=== PATIENT | male | born 1955 | race Caucasian/White ===

== ENCOUNTER 2024-06-13 19:58 | Emergency (ER) | payer MEDICARE, OTHER, SELFPAY ==
[2024-06-13] VITALS (18 sets, daily range): BP systolic 80–135; BP diastolic 54–78; PULSE 45–72; RESP 14–24; TEMP 36–36.7; O2SAT 90–98; BMI 28.5
--- NOTE | 2024-06-13 20:46 | DI.RAD.S_ITS ---
PROCEDURE: XR CHEST 1V INDICATIONS: chest pain TECHNIQUE: One view of the chest was acquired. COMPARISON: None. FINDINGS: Surgical changes and devices: Median sternotomy wires. CABG surgical clips. Left atrial appendage occlusion device. Lungs and pleura: Lungs are clear. No pleural effusions or pneumothorax. Mediastinum: Aortic arch calcifications. Mediastinal contours appear normal. Heart size is normal. Bones and chest wall: Prior right distal clavicular resection. No suspicious bony lesions. Overlying soft tissues appear unremarkable. IMPRESSION: No acute cardiothoracic process. Dictated by: Darrius Jasso M.D. on 06/13/2024 at 21:18 Approved by: Darrius Jasso M.D. on 06/13/2024 at 21:18
--- NOTE | 2024-06-13 20:46 | EKG_ITS ---
[address] [address] Test Date: 2024-06-13 Pat Name: Vince Caraballo Department: [facility] Room: Gender: Male [employer] Superintendent: MAREK DAY : 1955 Requested By: Order Number: [id number] Reading MD: Cuate Lester MD Measurements Intervals [place] Rate: 56 P: 38 IA: 192 QRS: -7 QRSD: 92 T: 8 QT: 424 QTc: 409 Interpretive Statements Sinus bradycardia Electronically Signed On 06-14-2024 12:21:41 PST by Cuate Lester MD
[2024-06-13 20:54] LABS: INR 0.9 (0.9-1.3)
[2024-06-13 20:56] LABS: Add Manual Diff / Slide Review NO; Basophils Absolute Auto 100 /uL (0-100); Basophils Percent Auto 0.8 % (0-2); Eosinophils Absolute Auto 100 /uL (0-450); Eosinophils Percent Auto 1.5 % (2-4); Hematocrit 48.1 % (41-53); Hemoglobin 16.4 g/dL (13.5-17.5); Lymphocytes Absolute Auto 3900 /uL (1100-4500); Lymphocytes Percent Auto 41.6 % (25-40); Mean Corpuscular HGB Conc 34.1 % (30-36); Mean Corpuscular Hemoglobin 30.3 PG (26-34); Monocytes Absolute Auto 400 /uL (0-900); Monocytes Percent Auto 4.6 % (3-14); Neutrophils Absolute Auto 4800 /uL (1500-7000); Neutrophils Percent Auto 51.5 % (50-75); Platelet Count 221 X10^3/uL (150-400); Red Cell Distribution Width 13.7 % (11.6-14.8); White Blood Cell Count 9.3 X10^3/uL (4.5-11.0)
[2024-06-13 20:59] LABS: Alanine Aminotransferase 37 IU/L (<50); Albumin 4.5 g/dL (3.5-5.0); Albumin Globulin Ratio 1.7 (1.0-2.8); Alkaline Phosphatase 88 U/L (38-126); Aspartate Aminotransferase 38 IU/L (17-59); BUN Creatinine Ratio 16.5 (6-22); Bilirubin Total 0.5 mg/dL (0.2-1.3); Blood Urea Nitrogen 19 mg/dL (9-20); Calcium 8.9 mg/dL (8.4-10.2); Carbon Dioxide 21 mmol/L (22-32); Chloride 108 mmol/L (98-107); Creatine Kinase 114 U/L (55-170); Estimated Glomerular Filt Rate > 60 mL/min (>60); Globulin 2.6 g/dL (1.7-4.1); Glucose 144 mg/dL (80-110); HEMOLYSIS 29 (0-50); Lipase 78 U/L (23-300); Magnesium 2.4 mg/dL (1.6-2.3); PTT Partial Thromboplastin Tim 21 SECONDS (25.1-36.5); Potassium 3.9 mmol/L (3.4-5.1); Sodium 141 mmol/L (137-145); Total Protein 7.1 g/dL (6.3-8.2)
[2024-06-13 21:11] LABS: NT-proBNP (BNP-Adult 18+) 87 pg/mL (<125); Troponin I < 0.012 ng/mL (0.01-0.034)
--- NOTE | 2024-06-13 21:16 | DI.CT.S_ITS ---
PROCEDURE: CT ANGIO CHEST ABDOMEN PELVIS INDICATIONS: dizzy, low BP, aortagram TECHNIQUE: Precontrast 5 mm thick sections acquired from the lung apices to the iliac crests. After the administration of intravenous contrast, 2.5 mm thick sections again acquired from the lung apices to the iliac crests. Maximum intensity projection (MIP) oblique sagittal and coronal reformats were then acquired. For radiation dose reduction, the following was used: automated exposure control. COMPARISON: None. FINDINGS: Image quality: Diagnostic. Thyroid: Within normal limits. Cardiac: Heart size within normal limits. No pericardial effusion. Aortic valve graft. Moderate coronary artery calcifications. Left atrial appendage occlusion device. Aorta: No aortic intramural hematoma, aneurysm, or dissection. The visualized arterial vasculature is patent. Mild aortoiliac atherosclerosis. Pulmonary Artery: Main pulmonary artery diameter within normal limits. Lungs: No focal lung consolidation. Pleura: No pneumothorax or pleural effusion. Airways: The trachea and mainstem bronchi are patent. Lymph Nodes: No mediastinal, hilar, or axillary lymphadenopathy. Esophagus: Small hiatal hernia. Peritoneum: No pneumoperitoneum or ascites. Bones: No acute osseous abnormality. Liver: Normal in size and contour. Gallbladder: Cholelithiasis. Biliary tree: No intrahepatic or extrahepatic biliary ductal dilatation. Pancreas: Within normal limits. Spleen: Normal in size and contour. Kidneys: No hydronephrosis or obstructive urolithiasis. Adrenals: No adrenal nodularity. Bladder: Normal in size and wall thickness. : No acute abnormality. Stomach: Normal in size and contour. Bowel: Normal in diameter without any bowel obstruction. Nonvisualization of the appendix without secondary signs of acute appendicitis. 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 Lymph Nodes: No retroperitoneal, mesenteric, or inguinal lymphadenopathy. Soft Tissues: No acute abnormality. IMPRESSION: 1. No CT evidence of acute aortic syndrome. 2. Cholelithiasis. 3. No other acute CT abnormality of the chest/abdomen/pelvis. Dictated by: Darrius Jasso M.D. on 06/13/2024 at 22:59 Approved by: Darrius Jasso M.D. on 06/13/2024 at 23:06
--- NOTE | 2024-06-13 21:18 | DI.CT.S_ITS ---
PROCEDURE: CT HEAD/BRAIN WO CON INDICATIONS: syncope TECHNIQUE: Noncontrast 4.5 mm thick angled axial sections acquired from the foramen magnum to the vertex, with coronal and sagittal reformats. For radiation dose reduction, the following was used: automated exposure control, adjustment of mA and/or kV according to patient size. COMPARISON: None. FINDINGS: Image quality: Diagnostic. CSF spaces: Basal cisterns are patent. No extra-axial fluid collections. Ventricles are normal in size and shape. Brain: No midline shift. No intracranial masses or hemorrhage. [place]red[place]-white matter interface is normal. Intracranial atherosclerosis. Skull and face: Calvarium and visualized facial bones are intact, without suspicious lesions. Sinuses: Visualized sinuses and mastoids are clear. IMPRESSION: No acute intracranial abnormality. Dictated by: Darrius Jasso M.D. on 06/13/2024 at 22:58 Approved by: Darrius Jasso M.D. on 06/13/2024 at 22:59
[2024-06-13] MEDS: ONDANSETRON 4 MG/2 ML INJ IV (21:35)
[2024-06-13] MEDS: SODIUM CHLORIDE 0.9% 1,000 ML 1000 ML IV (21:36)
[2024-06-13 21:47] LABS: Ethanol (ETOH) 144 mg/dL
[2024-06-13] MEDS: ASPIRIN 81 MG CHEW TAB 324 MG PO (22:24)
[2024-06-13] MEDS: ASPIRIN 81 MG CHEW TAB 162 MG PO (22:33)
[2024-06-13 23:31] LABS: Troponin I < 0.012 ng/mL (0.01-0.034)
[2024-06-13 23:35] LABS: Appearance Urine UA CLEAR; Bilirubin Urine UA NEGATIVE (NEGATIVE); Color Urine UA YELLOW; Glucose Urine UA NEGATIVE (Negative); Ketones Urine UA NEGATIVE (NEGATIVE); Leukocyte Esterase Urine UA NEGATIVE (NEGATIVE); Nitrite Urine UA NEGATIVE (Negative); Occult Blood Urine UA NEGATIVE (Negative); Protein Urine UA NEGATIVE (Negative); Urobilinogen Urine UA 0.2 E.U./dL (0.2)
[2024-06-13 23:40] LABS: Ur Creatinine Normal (Normal); Ur Specific Gravity Normal (Normal); Urine Amphetamines Negative (Negative); Urine Barbiturates Negative (Negative); Urine Benzodiazepines Negative (Negative); Urine Cocaine Negative (Negative); Urine MDMA Negative (Negative); Urine Methadone Negative (Negative); Urine Methamphetamines Negative (Negative); Urine Opiates Negative (Negative); Urine Oxycodone Negative (Negative); Urine Phencyclidine Negative (Negative); Urine THC Negative (Negative); Urine Tricyclic Antidepressant Negative (Negative); Urine pH Normal (Normal)
[2024-06-13 23:56] LABS: Bacteria Urine None Seen; Culture Indicated Urine Cult Not Indicated; RBC Urine None Seen (0-5/HPF); Squamous Epithelial Cell Urine None Seen (0-5/HPF); Urine Volume 10mL (spun); WBC Urine None Seen (0-5/HPF)
[2024-06-14] VITALS (55 sets, daily range): BP systolic 63–147; BP diastolic 41–87; PULSE 51–92; RESP 15–28; TEMP 37.3; O2SAT 91–99
--- NOTE | 2024-06-14 01:10 | PC.NURSE ---
pt started feeling like he was going to pass out and became nauseated Dr Candelaria was informed per Rosalba العلي RN, pt then was noted to be in asystole on the monitor with no pulse compression were started after aric 15 sec of compression pt woke and was oriented with + pulse, pt was moved to 2 for closer monitoring with vs noted BP 99/54, HR 54, pt denied any cp or discomfort.
--- NOTE | 2024-06-14 01:11 | ED.SYNCOPE ---
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 No nausea or vomiting. No palpitations. No shortness of breath cough fevers chills recently. No change in medications known. No focal weakness to face arm or leg. No focal numbness to face arm or leg. Related Data Allergies Allergy/AdvReac Type Severity Reaction Status Date / Time amoxicillin Allergy Mild Hives Verified 06/13/24 21:03 Penicillins Allergy Mild Hives Verified 06/13/24 21:03 Exam <Sloan Candelaria MD - Last Filed: 06/14/24 21:33> Narrative Exam Narrative: GENERAL: Well-developed patient, in mild distress. HEAD: Atraumatic. Normocephalic. EYES: Pupils equal round and reactive. Extraocular motions intact. No scleral icterus. No injection or drainage. ENT: Nose without bleeding, purulent drainage. Throat without erythema, tonsillar hypertrophy or exudate. Airway patent. NECK: Trachea midline. Non tender CARDIOVASCULAR: Regular rate and rhythm without murmurs, gallops, or rubs. RESPIRATORY: Clear to auscultation. Breath sounds equal bilaterally. No wheezes, rales, or rhonchi. GASTROINTESTINAL: Abdomen soft, non-tender, nondistended. EXTREMITIES: No edema or joint tenderness. BACK: Nontender without deformity or crepitance. No flank tenderness. NEURO: AOx3. Motor functions grossly nonfocal SKIN: No rash or erythema of visible areas Initial Vital Signs Initial Vital Signs: Vital Signs Temperature 96.8 F L 06/13/24 19:58 Pulse Rate 51 L 06/13/24 19:58 Respiratory Rate 16 06/13/24 19:58 Blood Pressure 105/68 06/13/24 19:58 Pulse Oximetry 98 06/13/24 19:58 Oxygen Delivery Method Room Air 06/13/24 19:58 <Garima Champagne DO - Last Filed: 06/14/24 15:10> Initial Vital Signs Initial Vital Signs: Vital Signs Temperature 96.8 F L 06/13/24 19:58 Pulse Rate 51 L 06/13/24 19:58 Respiratory Rate 16 06/13/24 19:58 Blood Pressure 105/68 06/13/24 19:58 Pulse Oximetry 98 06/13/24 19:58 Oxygen Delivery Method Room Air 06/13/24 19:58 Course <Sloan Candelaria MD - Last Filed: 06/14/24 21:33> Orders Ordered: Discontinued Medications Aspirin (Aspirin 81 Mg Chew Tab) 324 mg PO NOW ONE Stop: 06/13/24 20:46 Last Admin: 06/13/24 22:24 Dose: 162 mg Documented By: ADRIAN Aspirin (Aspirin 81 Mg Chew Tab) 162 mg PO NOW ONE Stop: 06/13/24 22:28 Last Admin: 06/13/24 22:33 Dose: 162 mg Documented By: ADRIAN Atropine Sulfate (Atropine 1 Mg/10 Ml Syringe) 0.5 mg IV NOW ONE Stop: 06/14/24 01:13 Last Admin: 06/14/24 01:15 Dose: 0.5 mg Documented By: RC Atropine Sulfate (Atropine 1 Mg/10 Ml Syringe) 0.5 mg IV NOW ONE Stop: 06/14/24 01:27 Last Admin: 06/14/24 01:26 Dose: 0.5 mg Documented By: RC Clopidogrel Bisulfate (Clopidogrel 75 Mg Tablet) 75 mg PO NOW ONE Stop: 06/14/24 07:46 Last Admin: 06/14/24 07:53 Dose: 75 mg Documented By: CTS Sodium Chloride (Normal Saline 0.9%) 1,000 mls @ 1,000 mls/hr IV BOLUS ONE Stop: 06/13/24 22:17 Last Infusion: 06/13/24 23:32 Dose: Infused Documented By: Admin: 06/13/24 21:36 Dose: 1,000 mls/hr Documented By: SB Epinephrine HCl 4 mg/ Dextrose 250 mls @ 3.75 mls/hr IV TITRATE SHIRAZ; Protocol Dopamine HCl/Dextrose (Dopamine 400 Mg-D5w 250 Ml) 400 mg in 250 mls @ 17.86 mls/hr IV TITRATE SHIRAZ; Protocol Last Admin: 06/14/24 07:47 Dose: Not Given Documented By: MONA Ondansetron HCl (Ondansetron 4 Mg/2 Ml Inj) 4 mg IV NOW ONE Stop: 06/13/24 21:28 Last Admin: 06/13/24 21:35 Dose: 4 mg Documented By: ADRIAN Ondansetron HCl (Ondansetron 4 Mg/2 Ml Inj) 4 mg IV NOW ONE Stop: 06/14/24 01:31 Last Admin: 06/14/24 01:46 Dose: 4 mg Documented By: RADHA Pantoprazole Sodium (Pantoprazole 40 Mg Vial) 40 mg IV NOW ONE Stop: 06/14/24 07:46 Last Admin: 06/14/24 07:53 Dose: 40 mg Documented By: MONA Vital Signs Vital signs: Vital Signs - 8 hr 06/14/24 07:10 06/14/24 07:10 06/14/24 07:20 Pulse Rate 81 80 Respiratory Rate 18 18 Blood Pressure 131/67 Pulse Oximetry 95 96 Oxygen Delivery Method Oxygen Flow Rate 06/14/24 07:20 06/14/24 07:30 06/14/24 07:30 Pulse Rate 81 Respiratory Rate 19 Blood Pressure 132/65 136/69 Pulse Oximetry 95 Oxygen Delivery Method Oxygen Flow Rate 06/14/24 07:40 06/14/24 07:40 06/14/24 07:50 Pulse Rate 84 87 Respiratory Rate 23 28 H Blood Pressure 127/66 Pulse Oximetry 95 96 Oxygen Delivery Method Oxygen Flow Rate 06/14/24 07:50 06/14/24 08:00 06/14/24 08:00 Pulse Rate 85 Respiratory Rate 20 Blood Pressure 116/74 129/68 Pulse Oximetry 95 Oxygen Delivery Method Oxygen Flow Rate 06/14/24 08:10 06/14/24 08:10 06/14/24 08:20 Pulse Rate 84 83 Respiratory Rate 20 23 Blood Pressure 127/68 Pulse Oximetry 95 94 Oxygen Delivery Method Oxygen Flow Rate 06/14/24 08:20 06/14/24 08:30 06/14/24 08:30 Pulse Rate 85 Respiratory Rate 22 Blood Pressure 124/66 131/67 Pulse Oximetry 95 Oxygen Delivery Method Nasal Cannula Oxygen Flow Rate 2 06/14/24 08:40 06/14/24 08:40 06/14/24 08:50 Pulse Rate 81 82 Respiratory Rate 20 17 Blood Pressure 128/67 Pulse Oximetry 93 94 Oxygen Delivery Method Nasal Cannula Oxygen Flow Rate 2 06/14/24 08:50 06/14/24 09:00 06/14/24 09:00 Pulse Rate 86 Respiratory Rate 24 Blood Pressure 128/65 128/68 Pulse Oximetry Oxygen Delivery Method Oxygen Flow Rate 06/14/24 09:10 06/14/24 09:10 06/14/24 09:21 Pulse Rate 89 83 Respiratory Rate 23 24 Blood Pressure 140/71 Pulse Oximetry 94 Oxygen Delivery Method Nasal Cannula Oxygen Flow Rate 2 06/14/24 09:21 06/14/24 09:30 06/14/24 09:30 Pulse Rate 82 Respiratory Rate 18 Blood Pressure 121/62 118/56 L Pulse Oximetry 94 Oxygen Delivery Method Nasal Cannula Oxygen Flow Rate 2 <Garima Champagne, DO - Last Filed: 06/14/24 15:10> Orders Ordered: Discontinued Medications Aspirin (Aspirin 81 Mg Chew Tab) 324 mg PO NOW ONE Stop: 06/13/24 20:46 Last Admin: 06/13/24 22:24 Dose: 162 mg Documented By: SB Aspirin (Aspirin 81 Mg Chew Tab) 162 mg PO NOW ONE Stop: 06/13/24 22:28 Last Admin: 06/13/24 22:33 Dose: 162 mg Documented By: SB Atropine Sulfate (Atropine 1 Mg/10 Ml Syringe) 0.5 mg IV NOW ONE Stop: 06/14/24 01:13 Last Admin: 06/14/24 01:15 Dose: 0.5 mg Documented By: RC Atropine Sulfate (Atropine 1 Mg/10 Ml Syringe) 0.5 mg IV NOW ONE Stop: 06/14/24 01:27 Last Admin: 06/14/24 01:26 Dose: 0.5 mg Documented By: RC Clopidogrel Bisulfate (Clopidogrel 75 Mg Tablet) 75 mg PO NOW ONE Stop: 06/14/24 07:46 Last Admin: 06/14/24 07:53 Dose: 75 mg Documented By: MONA Sodium Chloride (Normal Saline 0.9%) 1,000 mls @ 1,000 mls/hr IV BOLUS ONE Stop: 06/13/24 22:17 Last Infusion: 06/13/24 23:32 Dose: Infused Documented By: Admin: 06/13/24 21:36 Dose: 1,000 mls/hr Documented By: ADRIAN Epinephrine HCl 4 mg/ Dextrose 250 mls @ 3.75 mls/hr IV TITRATE SHIRAZ; Protocol Dopamine HCl/Dextrose (Dopamine 400 Mg-D5w 250 Ml) 400 mg in 250 mls @ 17.86 mls/hr IV TITRATE SHIRAZ; Protocol Last Admin: 06/14/24 07:47 Dose: Not Given Documented By: MONA Ondansetron HCl (Ondansetron 4 Mg/2 Ml Inj) 4 mg IV NOW ONE Stop: 06/13/24 21:28 Last Admin: 06/13/24 21:35 Dose: 4 mg Documented By: ADRIAN Ondansetron HCl (Ondansetron 4 Mg/2 Ml Inj) 4 mg IV NOW ONE Stop: 06/14/24 01:31 Last Admin: 06/14/24 01:46 Dose: 4 mg Documented By: RADHA Pantoprazole Sodium (Pantoprazole 40 Mg Vial) 40 mg IV NOW ONE Stop: 06/14/24 07:46 Last Admin: 06/14/24 07:53 Dose: 40 mg Documented By: MONA Vital Signs Vital signs: Vital Signs - 8 hr 06/14/24 07:10 06/14/24 07:10 06/14/24 07:20 Pulse Rate 81 80 Respiratory Rate 18 18 Blood Pressure 131/67 Pulse Oximetry 95 96 Oxygen Delivery Method Oxygen Flow Rate 06/14/24 07:20 06/14/24 07:30 06/14/24 07:30 Pulse Rate 81 Respiratory Rate 19 Blood Pressure 132/65 136/69 Pulse Oximetry 95 Oxygen Delivery Method Oxygen Flow Rate 06/14/24 07:40 06/14/24 07:40 06/14/24 07:50 Pulse Rate 84 87 Respiratory Rate 23 28 H Blood Pressure 127/66 Pulse Oximetry 95 96 Oxygen Delivery Method Oxygen Flow Rate 06/14/24 07:50 06/14/24 08:00 06/14/24 08:00 Pulse Rate 85 Respiratory Rate 20 Blood Pressure 116/74 129/68 Pulse Oximetry 95 Oxygen Delivery Method Oxygen Flow Rate 06/14/24 08:10 06/14/24 08:10 06/14/24 08:20 Pulse Rate 84 83 Respiratory Rate 20 23 Blood Pressure 127/68 Pulse Oximetry 95 94 Oxygen Delivery Method Oxygen Flow Rate 06/14/24 08:20 06/14/24 08:30 06/14/24 08:30 Pulse Rate 85 Respiratory Rate 22 Blood Pressure 124/66 131/67 Pulse Oximetry 95 Oxygen Delivery Method Nasal Cannula Oxygen Flow Rate 2 06/14/24 08:40 06/14/24 08:40 06/14/24 08:50 Pulse Rate 81 82 Respiratory Rate 20 17 Blood Pressure 128/67 Pulse Oximetry 93 94 Oxygen Delivery Method Nasal Cannula Oxygen Flow Rate 2 06/14/24 08:50 06/14/24 09:00 06/14/24 09:00 Pulse Rate 86 Respiratory Rate 24 Blood Pressure 128/65 128/68 Pulse Oximetry Oxygen Delivery Method Oxygen Flow Rate 06/14/24 09:10 06/14/24 09:10 06/14/24 09:21 Pulse Rate 89 83 Respiratory Rate 23 24 Blood Pressure 140/71 Pulse Oximetry 94 Oxygen Delivery Method Nasal Cannula Oxygen Flow Rate 2 06/14/24 09:21 06/14/24 09:30 06/14/24 09:30 Pulse Rate 82 Respiratory Rate 18 Blood Pressure 121/62 118/56 L Pulse Oximetry 94 Oxygen Delivery Method Nasal Cannula Oxygen Flow Rate 2 MDM - Syncope <Sloan Candelaria MD - Last Filed: 06/14/24 21:33> Lab Data Attestation: I reviewed the patient's lab results. Lab results narrative: White blood cell count 9300, hemoglobin 16.4, platelets adequate. BUN 19 with creatinine 1.15, glucose 144. Sodium 141, potassium 3.9, chloride 108, serum CO2 21. Liver functions normal. Lipase normal. Troponin negative/unmeasurable. Urine drug screen negative. Urinalysis negative. Alcohol level 144 at 8:00 p.m.. 06/13/24 20:00 06/13/24 20:00 Labs: Lab Results 06/13/24 06/13/24 06/13/24 Range/Units 20:00 23:00 23:30 WBC 9.3 (4.5-11.0) X10^3/uL RBC 5.40 (4.5-5.9) X10^6/uL Hgb 16.4 (13.5-17.5) g/dL Hct 48.1 (41-53) % MCV 89.0 (80-100) fL MCH 30.3 (26-34) PG MCHC 34.1 (30-36) % RDW 13.7 (11.6-14.8) % Plt Count 221 (150-400) X10^3/uL Neut % (Auto) 51.5 (50-75) % Lymph % (Auto) 41.6 H (25-40) % [place] % (Auto) 4.6 (3-14) % Eos % (Auto) 1.5 L (2-4) % Baso % (Auto) 0.8 (0-2) % Neut # (Auto) 4800 (3699-4552) /uL Lymph # (Auto) 3900 (1370-4595) /uL [place] # (Auto) 400 (0-900) /uL Eos # (Auto) 100 (0-450) /uL Baso # (Auto) 100 (0-100) /uL PT 10.0 (9.4-12.5) SECONDS INR 0.9 (0.9-1.3) APTT 21 L (25.1-36.5) SECONDS Sodium 141 (137-145) mmol/L Potassium 3.9 (3.4-5.1) mmol/L Chloride 108 H (98-107) mmol/L Carbon Dioxide 21 L (22-32) mmol/L BUN 19 (9-20) mg/dL Creatinine 1.15 (0.66-1.25) mg/dL Estimated GFR > 60 (>60) mL/min BUN/Creatinine Ratio 16.5 (6-22) Glucose 144 H (80-110) mg/dL Calcium 8.9 (8.4-10.2) mg/dL Magnesium 2.4 H (1.6-2.3) mg/dL Total Bilirubin 0.5 (0.2-1.3) mg/dL AST 38 (17-59) IU/L ALT 37 (<50) IU/L Alkaline Phosphatase 88 (38-126) U/L Total Creatine Kinase 114 (55-170) U/L Troponin I < 0.012 < 0.012 (0.01-0.034) ng/mL NT-Pro-B Natriuret Pep 87 (<125) pg/mL Total Protein 7.1 (6.3-8.2) g/dL Albumin 4.5 (3.5-5.0) g/dL Globulin 2.6 (1.7-4.1) g/dL Albumin/Globulin Ratio 1.7 (1.0-2.8) Lipase 78 (23-300) U/L Urine Color Yellow Urine Appearance Clear Urine pH 7.0 (4.5-8.0) Ur Specific [place] 1.010 (1.000-1.035) Urine Protein Negative (Negative) Urine Glucose (UA) Negative (Negative) g/dL Urine Ketones Negative (NEGATIVE) Urine Occult Blood Negative (Negative) Urine Nitrate Negative (Negative) Urine Bilirubin Negative (NEGATIVE) Urine Urobilinogen 0.2 (0.2) E.U./dL Ur Leukocyte Esterase Negative (NEGATIVE) Urine RBC None seen (0-5/HPF) Urine WBC None seen (0-5/HPF) Ur Squamous Epith Cells None seen (0-5/HPF) Urine Bacteria None seen (None) Ur Culture Indicated? Cult not indicated Vol Urine Centrifuged 10ml (spun) U Opiates 300ng/mL cut Negative (Negative) Ur Oxycodone Screen Negative (Negative) Urine Methadone Screen Negative (Negative) Ur Barbiturates Screen Negative (Negative) U Tricyclic Antidepress Negative (Negative) Ur Phencyclidine Scrn Negative (Negative) Ur Amphetamines Screen Negative (Negative) U Methamphetamines Scrn Negative (Negative) Ur MDMA Scrn (Ecstasy) Negative (Negative) U Benzodiazepines Scrn Negative (Negative) Urine Cocaine Screen Negative (Negative) U Marijuana (THC) Screen Negative (Negative) Urine Specific [place] (Normal) Ethyl Alcohol 144 H ( - 10) mg/dL Ur Creatinine (Normal) 06/13/24 06/14/24 Range/Units 23:30 07:46 WBC (4.5-11.0) X10^3/uL RBC (4.5-5.9) X10^6/uL Hgb (13.5-17.5) g/dL Hct (41-53) % MCV (80-100) fL MCH (26-34) PG MCHC (30-36) % RDW (11.6-14.8) % Plt Count (150-400) X10^3/uL Neut % (Auto) (50-75) % Lymph % (Auto) (25-40) % [place] % (Auto) (3-14) % Eos % (Auto) (2-4) % Baso % (Auto) (0-2) % Neut # (Auto) (7881-1011) /uL Lymph # (Auto) (3491-4875) /uL [place] # (Auto) (0-900) /uL Eos # (Auto) (0-450) /uL Baso # (Auto) (0-100) /uL PT (9.4-12.5) SECONDS INR (0.9-1.3) APTT (25.1-36.5) SECONDS Sodium (137-145) mmol/L Potassium (3.4-5.1) mmol/L Chloride (98-107) mmol/L Carbon Dioxide (22-32) mmol/L BUN (9-20) mg/dL Creatinine (0.66-1.25) mg/dL Estimated GFR (>60) mL/min BUN/Creatinine Ratio (6-22) Glucose (80-110) mg/dL Calcium (8.4-10.2) mg/dL Magnesium (1.6-2.3) mg/dL Total Bilirubin (0.2-1.3) mg/dL AST (17-59) IU/L ALT (<50) IU/L Alkaline Phosphatase (38-126) U/L Total Creatine Kinase (55-170) U/L Troponin I < 0.012 (0.01-0.034) ng/mL NT-Pro-B Natriuret Pep (<125) pg/mL Total Protein (6.3-8.2) g/dL Albumin (3.5-5.0) g/dL Globulin (1.7-4.1) g/dL Albumin/Globulin Ratio (1.0-2.8) Lipase (23-300) U/L Urine Color Urine Appearance Urine pH Normal (4.5-8.0) Ur Specific [place] (1.000-1.035) Urine Protein (Negative) Urine Glucose (UA) (Negative) g/dL Urine Ketones (NEGATIVE) Urine Occult Blood (Negative) Urine Nitrate (Negative) Urine Bilirubin (NEGATIVE) Urine Urobilinogen (0.2) E.U./dL Ur Leukocyte Esterase (NEGATIVE) Urine RBC (0-5/HPF) Urine WBC (0-5/HPF) Ur Squamous Epith Cells (0-5/HPF) Urine Bacteria (None) Ur Culture Indicated? Vol Urine Centrifuged U Opiates 300ng/mL cut (Negative) Ur Oxycodone Screen (Negative) Urine Methadone Screen (Negative) Ur Barbiturates Screen (Negative) U Tricyclic Antidepress (Negative) Ur Phencyclidine Scrn (Negative) Ur Amphetamines Screen (Negative) U Methamphetamines Scrn (Negative) Ur MDMA Scrn (Ecstasy) (Negative) U Benzodiazepines Scrn (Negative) Urine Cocaine Screen (Negative) U Marijuana (THC) Screen (Negative) Urine Specific [place] Normal (Normal) Ethyl Alcohol ( - 10) mg/dL Ur Creatinine Normal (Normal) Point of Care Testing Glucose POC 150 Imaging Data Chest x-ray: Radiologist's Impression: [address] [address] XRay Report Signed Patient: Vince Caraballo MR#: [id number] : 1955 Acct:[id number] Age/Sex: 69 / M Date of Service: 06/13/24 Loc: ED Accession Number: [id number] Procedure: XR chest 1V Ordering Provider: Sloan Candelaria MD PROCEDURE: XR CHEST 1V INDICATIONS: chest pain TECHNIQUE: One view of the chest was acquired. COMPARISON: None. FINDINGS: Surgical changes and devices: Median sternotomy wires. CABG surgical clips. Left atrial appendage occlusion device. Lungs and pleura: Lungs are clear. No pleural effusions or pneumothorax. Mediastinum: Aortic arch calcifications. Mediastinal contours appear normal. Heart size is normal. Bones and chest wall: Prior right distal clavicular resection. No suspicious bony lesions. Overlying soft tissues appear unremarkable. IMPRESSION: No acute cardiothoracic process. Dictated by: Darrius Jasso M.D. on 06/13/2024 at 21:18 Approved by: Darrius Jasso M.D. on 06/13/2024 at 21:18 CT scan - head: Radiologist's Impression: [address] [address] [address] Scan Report Signed Patient: Vince Caraballo MR#: [id number] : 1955 Acct:[id number] Age/Sex: 69 / M Date of Service: 06/13/24 Loc: ED Accession Number: [id number] Procedure: CT head/brain wo con Ordering Provider: Sloan Candelaria MD PROCEDURE: CT HEAD/BRAIN WO CON INDICATIONS: syncope TECHNIQUE: Noncontrast 4.5 mm thick angled axial sections acquired from the foramen magnum to the vertex, with coronal and sagittal reformats. For radiation dose reduction, the following was used: automated exposure control, adjustment of mA and/or kV according to patient size. COMPARISON: None. FINDINGS: Image quality: Diagnostic. CSF spaces: Basal cisterns are patent. No extra-axial fluid collections. Ventricles are normal in size and shape. Brain: No midline shift. No intracranial masses or hemorrhage. [place]-white matter interface is normal. Intracranial atherosclerosis. Skull and face: Calvarium and visualized facial bones are intact, without suspicious lesions. Sinuses: Visualized sinuses and mastoids are clear. IMPRESSION: No acute intracranial abnormality. Dictated by: Darrius Jasso M.D. on 06/13/2024 at 22:58 Approved by: Darrius Jasso M.D. on 06/13/2024 at 22:59 CT angiogram chest abdomen and pelvis.: Radiologist's Impression: Close Head CT (Signed) Darrius Jasso - 06/13/24 Chest/Abdomen/Pelvis CTA (Signed) Darrius Jasso - 06/13/24 Chest X-Ray (Signed) Darrius Jasso - 06/13/24 [place] [address] CT Scan Report Signed Patient: Vince Caraballo MR#: [id number] : 1955 Acct:[id number] Age/Sex: 69 / M Date of Service: 06/13/24 Loc: ED Accession Number: [id number] Procedure: CT angio chest abdomen pelvis Ordering Provider: Sloan Candelaria MD PROCEDURE: CT ANGIO CHEST ABDOMEN PELVIS INDICATIONS: dizzy, low BP, aortagram TECHNIQUE: Precontrast 5 mm thick sections acquired from the lung apices to the iliac crests. After the administration of intravenous contrast, 2.5 mm thick sections again acquired from the lung apices to the iliac crests. Maximum intensity projection (MIP) oblique sagittal and coronal reformats were then acquired. For radiation dose reduction, the following was used: automated exposure control. COMPARISON: None. FINDINGS: Image quality: Diagnostic. Thyroid: Within normal limits. Cardiac: Heart size within normal limits. No pericardial effusion. Aortic valve graft. Moderate coronary artery calcifications. Left atrial appendage occlusion device. Aorta: No aortic intramural hematoma, aneurysm, or dissection. The visualized arterial vasculature is patent. Mild aortoiliac atherosclerosis. Pulmonary Artery: Main pulmonary artery diameter within normal limits. Lungs: No focal lung consolidation. Pleura: No pneumothorax or pleural effusion. Airways: The trachea and mainstem bronchi are patent. Lymph Nodes: No mediastinal, hilar, or axillary lymphadenopathy. Esophagus: Small hiatal hernia. Peritoneum: No pneumoperitoneum or ascites. Bones: No acute osseous abnormality. Liver: Normal in size and contour. Gallbladder: Cholelithiasis. Biliary tree: No intrahepatic or extrahepatic biliary ductal dilatation. Pancreas: Within normal limits. Spleen: Normal in size and contour. Kidneys: No hydronephrosis or obstructive urolithiasis. Adrenals: No adrenal nodularity. Bladder: Normal in size and wall thickness. : No acute abnormality. Stomach: Normal in size and contour. Bowel: Normal in diameter without any bowel obstruction. Nonvisualization of the appendix without secondary signs of acute appendicitis. 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 Lymph Nodes: No retroperitoneal, mesenteric, or inguinal lymphadenopathy. Soft Tissues: No acute abnormality. IMPRESSION: 1. No CT evidence of acute aortic syndrome. 2. Cholelithiasis. 3. No other acute CT abnormality of the chest/abdomen/pelvis. Dictated by: Darrius Jsaso M.D. on 06/13/2024 at 22:59 Approved by: Darrius Jasso M.D. on 06/13/2024 at 23:06 ECG Data Attestation: I personally reviewed and interpreted this ECG as follows: Interpretation: 210, Sinus bradycardia with rate of 56, no obvious ST segment elevation or depression changes. T-wave inversion lead 3 flat in lead F, upright in lead 2. TN 192, QRS 92, QTC 409. 0115, sinus bradycardia with rate 55, no obvious ST segment elevation or depression changes. Unchanged from prior study. TN 174, QRS 80, QTC 419. MDM Narrative Medical decision making narrative: 69-year-old male with extensive cardiac history, prior coronary stents and CABG x2 vessels, all done in [place], last intervention was a single stent about 1-1/2 years ago in [place], moved up to the [facility], was attending a [facility] in sitting position when he felt quite dizzy like he might pass out. There was no associated palpitation or chest pain or diaphoresis. He put his hands between his legs. EMS was called, glucose reportedly normal, low blood pressure noted, low heart rate noted in the 50s, IV fluids given about 400 cc during transport, symptoms improved. Recent alcohol use noted. No trauma or injury known. Afebrile, sirs screen negative. No hives or anaphylactoid findings on examination. No black or red stools or known bleeding. Screening EKG was sinus bradycardia without obvious ischemic changes. Troponin negative/unmeasurable. Glucose and electrolytes unremarkable. Chest x-ray no acute changes, see radiology report. CT head noncontrast study, no acute changes see radiology report. CT angiogram chest abdomen and pelvis. Impressions: ?No CT evidence of acute aortic syndrome. Cholelithiasis. No other acute CT abnormality of the chest abdomen and pelvis. See radiology report. We will obtain interval repeat troponin. 0110, on air sampling and monitoring patient had bradycardia with preceding P wave, prolonged pause, became briefly unresponsive, rapid response, initial persons in the room felt that there was no pulse or responsiveness, initiated CPR with a few compressions, patient then was looking around, had slow speech, then conversant. Moved to room 2 resuscitation [place], sinus bradycardia again noted on repeat EKG, no ischemic changes obvious, patient had subsequent emesis nonbloody non black fluid, suctioned. IV atropine 0.5 mg given x2 doses. Transcutaneous pacer pads placed. Epinephrine infusion was prepared and brought to the bedside, however subsequent blood pressure and pulse adequate, heart rate 50s, systolic blood pressure 120, looking around, feels better. IV Zofran. Repeat chest x-ray shows no aspiration changes. No acute changes, see teleradiology report. 0330, case discussed with retail training manager [facility] Korey Salazar, accepts patient for transfer, requests dopamine infusion during transport, ordered. Call back from [facility], that ICU bed was lost, a more critical patient took the bed, their [facility] will consult 0445, case discussed with Dr Buckley [facility], awaiting bed assignment 0640, call back from [facility] nurse, still awaiting Cardiology for [facility], anticipating transfer there. Last vitals systolic blood pressure 130, heart rate now 90, not on dopamine. 0700, signed out to Dr Champagne 0730 Dr. Champagne-patient signed out to me by Dr. Candelaria seen evaluated patient myself. Patient had syncopal episode with a long bradycardic pause. CPR in the emergency department. This morning now complaining of acid reflux. Repeat EKGs does not show any ischemic changes repeat troponin this morning pending. Patient reports that he does get acid reflux. He also did not Plavix. Patient is not persistently bradycardic or hypotensive he did receive atropine last night 0.5mg x2. Vasopressors were ordered but never home purely for safety of transport. Waiting for bed assignment at [facility] Dr. Bradley retail training manager accepts patient Trop this morning is negative <Garima Champagne DO - Last Filed: 06/14/24 15:10> Lab Data Labs: Lab Results 06/13/24 06/13/24 06/13/24 Range/Units 20:00 23:00 23:30 WBC 9.3 (4.5-11.0) X10^3/uL RBC 5.40 (4.5-5.9) X10^6/uL Hgb 16.4 (13.5-17.5) g/dL Hct 48.1 (41-53) % MCV 89.0 (80-100) fL MCH 30.3 (26-34) PG MCHC 34.1 (30-36) % RDW 13.7 (11.6-14.8) % Plt Count 221 (150-400) X10^3/uL Neut % (Auto) 51.5 (50-75) % Lymph % (Auto) 41.6 H (25-40) % [place] % (Auto) 4.6 (3-14) % Eos % (Auto) 1.5 L (2-4) % Baso % (Auto) 0.8 (0-2) % Neut # (Auto) 4800 (6341-6202) /uL Lymph # (Auto) 3900 (0316-3591) /uL [place] # (Auto) 400 (0-900) /uL Eos # (Auto) 100 (0-450) /uL Baso # (Auto) 100 (0-100) /uL PT 10.0 (9.4-12.5) SECONDS INR 0.9 (0.9-1.3) APTT 21 L (25.1-36.5) SECONDS Sodium 141 (137-145) mmol/L Potassium 3.9 (3.4-5.1) mmol/L Chloride 108 H (98-107) mmol/L Carbon Dioxide 21 L (22-32) mmol/L BUN 19 (9-20) mg/dL Creatinine 1.15 (0.66-1.25) mg/dL Estimated GFR > 60 (>60) mL/min BUN/Creatinine Ratio 16.5 (6-22) Glucose 144 H (80-110) mg/dL Calcium 8.9 (8.4-10.2) mg/dL Magnesium 2.4 H (1.6-2.3) mg/dL Total Bilirubin 0.5 (0.2-1.3) mg/dL AST 38 (17-59) IU/L ALT 37 (<50) IU/L Alkaline Phosphatase 88 (38-126) U/L Total Creatine Kinase 114 (55-170) U/L Troponin I < 0.012 < 0.012 (0.01-0.034) ng/mL NT-Pro-B Natriuret Pep 87 (<125) pg/mL Total Protein 7.1 (6.3-8.2) g/dL Albumin 4.5 (3.5-5.0) g/dL Globulin 2.6 (1.7-4.1) g/dL Albumin/Globulin Ratio 1.7 (1.0-2.8) Lipase 78 (23-300) U/L Urine Color Yellow Urine Appearance Clear Urine pH 7.0 (4.5-8.0) Ur Specific [place] 1.010 (1.000-1.035) Urine Protein Negative (Negative) Urine Glucose (UA) Negative (Negative) g/dL Urine Ketones Negative (NEGATIVE) Urine Occult Blood Negative (Negative) Urine Nitrate Negative (Negative) Urine Bilirubin Negative (NEGATIVE) Urine Urobilinogen 0.2 (0.2) E.U./dL Ur Leukocyte Esterase Negative (NEGATIVE) Urine RBC None seen (0-5/HPF) Urine WBC None seen (0-5/HPF) Ur Squamous Epith Cells None seen (0-5/HPF) Urine Bacteria None seen (None) Ur Culture Indicated? Cult not indicated Vol Urine Centrifuged 10ml (spun) U Opiates 300ng/mL cut Negative (Negative) Ur Oxycodone Screen Negative (Negative) Urine Methadone Screen Negative (Negative) Ur Barbiturates Screen Negative (Negative) U Tricyclic Antidepress Negative (Negative) Ur Phencyclidine Scrn Negative (Negative) Ur Amphetamines Screen Negative (Negative) U Methamphetamines Scrn Negative (Negative) Ur MDMA Scrn (Ecstasy) Negative (Negative) U Benzodiazepines Scrn Negative (Negative) Urine Cocaine Screen Negative (Negative) U Marijuana (THC) Screen Negative (Negative) Urine Specific [place] (Normal) Ethyl Alcohol 144 H ( - 10) mg/dL Ur Creatinine (Normal) 06/13/24 06/14/24 Range/Units 23:30 07:46 WBC (4.5-11.0) X10^3/uL RBC (4.5-5.9) X10^6/uL Hgb (13.5-17.5) g/dL Hct (41-53) % MCV (80-100) fL MCH (26-34) PG MCHC (30-36) % RDW (11.6-14.8) % Plt Count (150-400) X10^3/uL Neut % (Auto) (50-75) % Lymph % (Auto) (25-40) % [place] % (Auto) (3-14) % Eos % (Auto) (2-4) % Baso % (Auto) (0-2) % Neut # (Auto) (6857-5129) /uL Lymph # (Auto) (5388-8993) /uL [place] # (Auto) (0-900) /uL Eos # (Auto) (0-450) /uL Baso # (Auto) (0-100) /uL PT (9.4-12.5) SECONDS INR (0.9-1.3) APTT (25.1-36.5) SECONDS Sodium (137-145) mmol/L Potassium (3.4-5.1) mmol/L Chloride (98-107) mmol/L Carbon Dioxide (22-32) mmol/L BUN (9-20) mg/dL Creatinine (0.66-1.25) mg/dL Estimated GFR (>60) mL/min BUN/Creatinine Ratio (6-22) Glucose (80-110) mg/dL Calcium (8.4-10.2) mg/dL Magnesium (1.6-2.3) mg/dL Total Bilirubin (0.2-1.3) mg/dL AST (17-59) IU/L ALT (<50) IU/L Alkaline Phosphatase (38-126) U/L Total Creatine Kinase (55-170) U/L Troponin I < 0.012 (0.01-0.034) ng/mL NT-Pro-B Natriuret Pep (<125) pg/mL Total Protein (6.3-8.2) g/dL Albumin (3.5-5.0) g/dL Globulin (1.7-4.1) g/dL Albumin/Globulin Ratio (1.0-2.8) Lipase (23-300) U/L Urine Color Urine Appearance Urine pH Normal (4.5-8.0) Ur Specific [place] (1.000-1.035) Urine Protein (Negative) Urine Glucose (UA) (Negative) g/dL Urine Ketones (NEGATIVE) Urine Occult Blood (Negative) Urine Nitrate (Negative) Urine Bilirubin (NEGATIVE) Urine Urobilinogen (0.2) E.U./dL Ur Leukocyte Esterase (NEGATIVE) Urine RBC (0-5/HPF) Urine WBC (0-5/HPF) Ur Squamous Epith Cells (0-5/HPF) Urine Bacteria (None) Ur Culture Indicated? Vol Urine Centrifuged U Opiates 300ng/mL cut (Negative) Ur Oxycodone Screen (Negative) Urine Methadone Screen (Negative) Ur Barbiturates Screen (Negative) U Tricyclic Antidepress (Negative) Ur Phencyclidine Scrn (Negative) Ur Amphetamines Screen (Negative) U Methamphetamines Scrn (Negative) Ur MDMA Scrn (Ecstasy) (Negative) U Benzodiazepines Scrn (Negative) Urine Cocaine Screen (Negative) U Marijuana (THC) Screen (Negative) Urine Specific [place] Normal (Normal) Ethyl Alcohol ( - 10) mg/dL Ur Creatinine Normal (Normal) Point of Care Testing Glucose POC 150 ECG Data Interpretation: 2104, Sinus bradycardia with rate of 56, no obvious ST segment elevation or depression changes. T-wave inversion lead 3 flat in lead F, upright in lead 2. TN 192, QRS 92, QTC 409. 0115, sinus bradycardia with rate 55, no obvious ST segment elevation or depression changes. Unchanged from prior study. TN 174, QRS 80, QTC 419. #3 Sinus rhythm rate 84 persistently 3 changes with Q-wave no ST elevation MDM Narrative Medical decision making narrative: 69-year-old male with extensive cardiac history, prior coronary stents and CABG x2 vessels, all done in [place], last intervention was a single stent about 1-1/2 years ago in [place], moved up to the [facility], was attending a [employer] in sitting position when he felt quite dizzy like he might pass out. There was no associated palpitation or chest pain or diaphoresis. He put his hands between his legs. EMS was called, glucose reportedly normal, low blood pressure noted, low heart rate noted in the 50s, IV fluids given about 400 cc during transport, symptoms improved. Recent alcohol use noted. No trauma or injury known. Afebrile, sirs screen negative. No hives or anaphylactoid findings on examination. No black or red stools or known bleeding. Screening EKG was sinus bradycardia without obvious ischemic changes. Troponin negative/unmeasurable. Glucose and electrolytes unremarkable. Chest x-ray no acute changes, see radiology report. CT head noncontrast study, no acute changes see radiology report. CT angiogram chest abdomen and pelvis. Impressions: ?No CT evidence of acute aortic syndrome. Cholelithiasis. No other acute CT abnormality of the chest abdomen and pelvis. See radiology report. We will obtain interval repeat troponin. 0110, on air sampling and monitoring patient had bradycardia with preceding P wave, prolonged pause, became briefly unresponsive, rapid response, initial persons in the room felt that there was no pulse or responsiveness, initiated CPR, 2 or 3 compressions initiated, patient then was looking around, conversant. Moved to room 2 resuscitation [place], sinus bradycardia again noted on repeat EKG, no ischemic changes obvious, patient had subsequent emesis nonbloody non black fluid, suctioned. IV atropine 0.5 mg given x2 doses. Transcutaneous pacer pads placed. Epinephrine infusion was prepared and brought to the room, however subsequent blood pressure and pulse adequate, heart rate 50s, systolic blood pressure 120, looking around, feels better. IV Zofran. Repeat chest x-ray shows no aspiration changes. No acute changes, see teleradiology report. 0330, case discussed with retail training manager Greg Salazar, accepts patient for transfer, requests dopamine infusion during transport, ordered. Call back from Korey Viveros, that ICU bed was lost, more critical patient took the bed, their [facility] will consult 044, case discussed with Dr Marcio Nair [facility], awaiting bed assignment 0640, call back from [place] intake nurse, still awaiting Cardiology for [facility], anticipating transfer there. Last vitals systolic blood pressure 130, heart rate now 90, not on dopamine. 0700, signed out to Dr Champagne 0730 Dr. Champagne-patient signed out to me by Dr. Candelaria seen evaluated patient myself. Patient had syncopal episode with a long bradycardic pause. CPR in the emergency department. This morning now complaining of acid reflux. Repeat EKGs does not show any ischemic changes repeat troponin this morning pending. Patient reports that he does get acid reflux. He also did not Plavix. Patient is not persistently bradycardic or hypotensive he did receive atropine last night 0.5mg x2. Vasopressors were ordered but never home purely for safety of transport. Waiting for bed assignment at [facility] Dr. Bradley retail training manager accepts patient Trop this morning is negative Critical Care Time <Garima Champagne DO - Last Filed: 06/14/24 15:10> Critical Care Time Critical Care Time: Yes Total Critical Care Time: 35 Attestation: The high probability of a clinically significant, sudden or life threatening deterioration of the [cardiovascular] system(s) required my full and direct attention, intervention and personal management. The aggregate critical care time was 35 minutes. This time is in addition to time spent performing reported procedures but includes the following: [x] Data Review and interpretation [x] Patient assessment and monitoring of vital signs [x] Documentation [x] Medication orders and management Discharge Plan Departure Patient Disposition: [facility] Clinical Impression: Syncope, Symptomatic sinus bradycardia
--- NOTE | 2024-06-14 01:12 | EKG_ITS ---
[address], [place] [address] Test Date: 2024-06-14 Pat Name: Vince Caraballo Department: [facility] Room: Gender: Male Sociology Faculty Member: : 1955 Requested By: Order Number: [id number] Reading MD: Cuate Lester MD Measurements Intervals [place] Rate: 55 P: 54 ID: [id number] QRS: 33 QRSD: 80 T: 13 QT: 438 QTc: 419 Interpretive Statements Sinus bradycardia Electronically Signed On 06-14-2024 12:23:08 PST by Cuate Lester MD
[2024-06-14] MEDS: ATROPINE 1 MG/10 ML SYRINGE 0.5 MG IV ×2 (01:15→01:26)
[2024-06-14] MEDS: ONDANSETRON 4 MG/2 ML INJ IV (01:46)
--- NOTE | 2024-06-14 01:46 | DI.RAD.S_ITS ---
PROCEDURE: XR CHEST 1V INDICATIONS: S/P chest compressions TECHNIQUE: One view of the chest was acquired. COMPARISON: [facility], , XR CHEST 1V, 06/13/2024, 20:42. FINDINGS: Surgical changes and devices: Median sternotomy wires and CABG surgical clips. Left atrial appendage occlusion device. Lungs and pleura: Lungs are clear. No pleural effusions or pneumothorax. Mediastinum: Mediastinal contours appear normal. Heart size is normal. Bones and chest wall: No suspicious bony lesions. Overlying soft tissues appear unremarkable. IMPRESSION: No acute cardiothoracic process. No pneumothorax or acute, displaced rib fractures. Dictated by: Darrius Jasso M.D. on 06/14/2024 at 2:04 Approved by: Darrius Jasso M.D. on 06/14/2024 at 2:05
--- NOTE | 2024-06-14 04:55 | PC.NURSE ---
Addendum entered by Sunshine Chamorro CNA 06/14/24 06:55: Nita from the [facility] transfer center called back at 0643 and said that they are still unable to get ahold of the charge nurse as well as their clinical research analyst to update them so they are still unable to give us bed placement at this time. Airlift was canceled at 0645. Dr. Candelaria was made aware and day shift will follow up on the bed placement and which facility they will be going to. Addendum entered by Sunshine Chamorro CNA 06/14/24 06:06: 0600 I called back to see if there were any updates. Nita at the transfer center said that they are unable to get ahold of the charge nurse down there so they are unable to give bed placement at this time and will call us back when they have a bed assignment. Airlift is still on standby at this time. MAREK Bergman and Dr. Candelaria made aware Original Note: Pt was accepted by Dr. Salaazr at [facility] at 0333. Pt will be going to Cardiac ICU rm 239. Was calling to set up transport for pt to go to [facility] at 0430. [facility] called back at 0433 saying that they are going to be turning down the flight at this time due to [facility] saying that the pt is no longer going to [place]. While [facility], [facility] called back and was on hold for me. Nita at the [facility] transfer hastings said hold off on setting up transport, we gave your bed to someone else. We had another critical pt that needed to get to us faster so we gave them your bed and are in contact with one of our other campuses to try and get you a bed momentarily. [facility] was put on standby at this time and pt, pt , MAREK Bergman, MAREK Navarrete, and Dr. Candelaria were all made aware of the change to the transfer. [facility] is where they said that the pt will now be going. Original accepting at [facility] was Dr. Salazar at 0333, but pt was just accepted by the new store custodian Dr. Buckley at 0449. Awaiting bed placement and confirmation to set up transport at this time. pt, pt family, MAREK Bergman, MAREK Navarrete, and Dr. Candelaria all aware
--- NOTE | 2024-06-14 06:59 | PC.NURSE ---
Pt reporting heartburn pain. States history of same, feels typical. Dr Candelaria/Ihsan notified. Orders received to repeat EKG, trop.
--- NOTE | 2024-06-14 07:04 | EKG_ITS ---
[address] [address] Test Date: 2024-06-14 Pat Name: Vince Caraballo Department: [facility] Room: Gender: Male Assisted Living Housekeeper: MARTI : 1955 Requested By: Order Number: [id number] Reading MD: Cuate Lester MD Measurements Intervals [place] Rate: 84 P: 53 ND: 176 QRS: 26 QRSD: 72 T: 41 QT: 368 QTc: 434 Interpretive Statements Normal sinus rhythm Electronically Signed On 06-14-2024 12:23:18 PST by Cuate Lester MD
--- NOTE | 2024-06-14 07:21 | PC.NURSE ---
Report given to katerine JARA
[2024-06-14] MEDS: CLOPIDOGREL 75 MG TABLET PO (07:53)
[2024-06-14] MEDS: PANTOPRAZOLE 40 MG VIAL IV (07:53)
--- NOTE | 2024-06-14 08:03 | PC.NURSE ---
Arrived to pt room. resting and appears comfortable on stretcher. at bedside. BP 130's/systolic. HR 85-90. denies pain at this time states mild heartburn. advised that he takes plavix for stents x 3 which he missed last night. Plavix and protonix given. AAOx3, RR even and clear, unlabored. Abd SNT with active bowel tones. Skin intact. using urinal to void.
[2024-06-14 08:27] LABS: Troponin I < 0.012 ng/mL (0.01-0.034)
--- NOTE | 2024-06-14 09:47 | PC.NURSE ---
Report given to Korey Lindquist. Report given to MAREK Sandhu. Pt transported out of ED at this time.
== END 2024-06-14 09:49 | disposition short-term general hospital (02) ==
PROVIDERS: Emergency Medicine; Emergency Provider Emergency Medicine
DX: R55 Syncope and collapse (principal); R00.1 Bradycardia, unspecified; R42 Dizziness and giddiness; R07.9 Chest pain, unspecified
CPT/HCPCS: 36415; 70450; 71045; 71275; 74174; 80053; 80305; 80320; 81001; 82550; 83690; 83735; 83880; 84484; 85025; 85610; 85730; 93005; 93010; 96361; 96374; 96375; 96376; 99285; 99291; 99292; J0461; J2405; J2470; Q9967